=== PATIENT | female | born 1945 | race Caucasian/White ===

== ENCOUNTER 2024-11-12 21:58 | Inpatient (IN) ==
--- NOTE | 2024-11-12 23:10 | ED Physician Documentation ---
PD HPI URI Stated complaint Stated Complaint: COUGH/WEAKNESS Chief complaint Chief Complaint: Resp History obtained from History obtained from: Patient and Family History of Present Illness Timing - onset: How many days ago (3) Timing duration: Days (3) Timing details: Gradual onset and Still present Associated symptoms: Chills, Nasal congestion, Dry cough, Dyspnea and Bilateral edema (chronic, not more than usual.) Contributing factors: No Sick contact, Unimmunized or COPD / asthma Similar symptoms before: Has not had sx before and Other (No history of asthma or emphysema. Does not use inhalers or oxygen at home.) Review of Systems Constitutional Reports: Fatigue, Chills, Malaise and Weakness Cardiovascular Reports: shortness of breath with exertion Respiratory Reports: Shortness of breath, Cough and Wheezing Gastrointestinal Reports: Nausea and Diarrhea (mild); Denies: Melena Endocrine Reports: Fatigue Allergic/Immunologic Reports: Wheezing Meds/Allgy Home Medications Ambulatory Orders Medication Instructions Recorded Confirmed benzonatate 100 mg capsule 100 mg PO BID PRN cough 11/12/24 11/12/24 carvedilol 25 mg tablet mg 11/12/24 doxazosin 8 mg tablet mg 11/12/24 duloxetine 11/12/24 gabapentin 300 mg capsule mg 11/12/24 guaifenesin PO 11/12/24 levothyroxine 11/12/24 losartan 100 tab 11/12/24 mg-hydrochlorothiazide 25 mg tablet omeprazole 40 mg capsule,delayed mg 11/12/24 release pitavastatin calcium 4 mg tablet mg 11/12/24 propranolol 20 mg tablet mg 11/12/24 tramadol 50 mg tablet mg 11/12/24 Allergies Allergies Allergy/AdvReac Type Severity Reaction Status Date / Time No Known Drug Allergies Allergy Verified 11/12/24 22:39 [facility] Social History Social History Smoking Status: Never smoker Second hand tobacco smoke exposure: No Do you dip or chew tobacco?: No Do you vape?: No Patient requests smoking cessation consult: No Initiate information on smoking cessation: No Relationship: Child Level: Assisted Home Mobility Equipment: Cane Do you feel safe in your home environment?: Yes Suffered physical, verbal, emotional, or financial abuse?: No Substance Use: denies use Exam Constitutional normal general appearance, distress noted (some increased work of breathing, but not in resp distress per se. ) (moderate) and average body habitus appears ill feeling, and weak voice/movements. HENMT normocephalic and oropharynx normal Neck/C-Spine visual inspection normal Lymph no lymphadenopathy noted Chest inspection of chest normal Respiratory breath sounds equal bilaterally (symmetric though with somewhat decreased tidal volume. ), wheezing noted (expiratory wheezes), no rales and no retractions Cardiovascular normal heart rate noted, regular rhythm noted and edema noted (1+ edema in both lower legs, at baseline per pt and family.) Gastrointestinal abdomen soft to palpation, nontender to palpation and nontender to percussion Results Vitals Vitals: Vital Signs - 24 hr 11/12/24 22:06 11/12/24 22:46 11/12/24 23:07 Temperature 37.5 C Temperature Source Oral Pulse Rate 78 75 Respiratory Rate 24 20 Blood Pressure 147/90 H 154/72 H O2 Saturation 93 96 Oxygen Delivery Method Nasal Cannula O2 Source Room air Room air If not protocol: Oxygen Flow, liters/minute 2 Pain Intensity 6 11/12/24 23:48 11/13/24 00:00 11/13/24 00:19 Temperature Temperature Source Pulse Rate 68 65 Respiratory Rate 24 20 Blood Pressure 130/63 O2 Saturation 95 Oxygen Delivery Method O2 Source Nasal cannula Nasal cannula If not protocol: Oxygen Flow, liters/minute 2 2 Pain Intensity 7 11/13/24 00:54 11/13/24 01:16 11/13/24 02:24 Temperature Temperature Source Pulse Rate 79 64 60 Respiratory Rate 24 22 20 Blood Pressure 116/45 L 114/49 L O2 Saturation 86 L 97 Oxygen Delivery Method O2 Source Nasal cannula Room air Nasal cannula If not protocol: Oxygen Flow, liters/minute 2 2 Pain Intensity Oxygen O2 Source Nasal cannula Labs Labs: Laboratory Tests 11/12/24 11/12/24 11/13/24 22:30 23:34 00:22 WBC 10.6 RBC 3.25 L Hgb 10.2 L Hct 32.3 L MCV 99.4 H MCH 31.4 H MCHC 31.6 L RDW 12.7 Plt Count 121 L MPV 12.4 H Neut # (Auto) 8.2 H Lymph # (Auto) 0.8 L [place] # (Auto) 1.6 H Eos # (Auto) 0.0 Baso # (Auto) 0.0 Absolute Nucleated RBC 0.00 Band Neuts % (Manual) Not Reportable Abnorm Lymph % (Manual) Not Reportable Nucleated RBC % 0.0 Neutrophils # (Manual) Not Reportable Lymphocytes # (Manual) Not Reportable Monocytes # (Manual) Not Reportable Eosinophils # (Manual) Not Reportable Basophils # (Manual) Not Reportable Differential Comment MANUAL=AUTO DIFF WBC Morphology NORMAL APPEARANCE Platelet Estimate DECREASED (<130,000) Platelet Morphology NORMAL APPEARANCE RBC Morph Micro Appear NORMAL APPEARANCE Sodium 136 Potassium 4.3 Chloride 101 Carbon Dioxide 28 Anion Gap 7.0 BUN 35 H Creatinine 2.1 H Estimated GFR (MDRD) 23 L Glucose 167 H Lactic Acid 0.5 Calcium 8.0 L Magnesium 1.3 L Total Bilirubin 0.5 AST 27 ALT 12 Alkaline Phosphatase 51 B-Natriuretic Peptide 209 H Total Protein 6.3 L Albumin 3.7 Globulin 2.6 Albumin/Globulin Ratio 1.4 Lipase 21 Nasal Adenovirus (PCR) NOT DETECTED Nasal B. parapertussis DNA (PCR) NOT DETECTED Nasal Coronavir 229E PCR NOT DETECTED Nasal Coronavir HKU1 PCR NOT DETECTED Nasal Coronavir NL63 PCR NOT DETECTED Nasal Coronavir OC43 PCR NOT DETECTED Nasal Enterovir/Rhinovir PCR NOT DETECTED Nasal Influenza B PCR NOT DETECTED Nasal Influenza A PCR NOT DETECTED Nasal Parainfluen 1 PCR NOT DETECTED Nasal Parainfluen 2 PCR NOT DETECTED Nasal Parainfluen 3 PCR NOT DETECTED Nasal Parainfluen 4 PCR NOT DETECTED Nasal RSV (PCR) NOT DETECTED Nasal B.pertussis DNA PCR NOT DETECTED Nasal C.pneumoniae (PCR) NOT DETECTED [place] Human Metapneumo PCR NOT DETECTED Nasal M.pneumoniae (PCR) NOT DETECTED Nasal SARS-CoV-2 (PCR) DETECTED A Rads (name of study) chest xray: Relevant Findings:: Final report received and EMP independent interpretation of test (no noted infiltrates. No apparent CHF at this time. ) Interpretation: FINDINGS: Surgical changes and devices: Partially evaluated lower cervical hardware.. Lungs and pleura: No pleural effusions or pneumothorax. No consolidation. Subcentimeter nodular opacities seen in the bilateral lungs. Mediastinum: Mediastinal contours appear normal. Heart size is normal. Nicci vation of the right hemidiaphragm. Bones and chest wall: No suspicious bony lesions. Overlying soft tissues appear unremarkable. IMPRESSION: No focal dense airspace consolidation. Bilateral subcentimeter nodular opacities. Findings may represent pulmonary nodules. No prior imaging is available. Consider further evaluation with nonemergent CT chest. PD Medical Decision Making ED course Complexity details: reviewed results (COVID positive. No infiltrates on CXR. presume viral pneumonitis. BNP minimal. ), re-evaluated patient (pt still with oxygen at 86% after 2 nebs and needing extra oxygen for sats of then 93%. presume needing hospitalization for further treamtn. ), considered differential (likely viral illness with the general symptoms, but most cocnern with the dyspnea and low oxygen. Will get CXR to eval for CHF, but sounds infectious. ), d/w patient, d/w family and d/w sap basis consultant (Hospitalist) ED course: Patient with history of heart disease and mild CHF but no history of asthma or emphysema presents with 3 days of increasing cough dyspnea general malaise less appetite and chills. Feeling short of breath and weak this evening and brought by family. She does have some bronchial congestion and diffuse lung wheezes. No focal consolidation type sounds heard. Chest x-rays not showing any focal infiltrates. Her oxygenation is in the upper 80s on first arrival and improved with nasal cannula. Nebulizers x 2 and she is still 86% on room air. After prolonged time, lab does report out the respiratory panel is positive for COVID. The patient states her baseline creatinine is approximately 2 so the current 2.1 does not seem out of pace. We do not have prior labs on her here. Main electrolytes are looking okay. The chest x-ray does not look like vascular congestion and her BNP is only in the 200s. She does not look to have a c omponent of CHF at this time. I she did socially will give some fluid bolusing. Lactate is negative. However she is ill with poor intake and's CHF and system diseases with hypoxia. I believe she warrants criteria for admission. I will contact the hospitalist. Discharge Plan Discharge Patient Disposition: [facility] DC/Xfer Condition: Stable Clinical Impression: COVID-19, Upper respiratory infection, Hypoxemia, General weakness Interventions: ED Admission Assessment Last Done: 11/13/24 03:24
[2024-11-12 23:33] LABS: BASOPHILS % (AUTO) 0.4 %; EOSINOPHILS % (AUTO) 0.3 %; HCT - HEMATOCRIT 32.3 % (37.0-47.0); HGB - HEMOGLOBIN 10.2 g/dL (12.0-16.0); LYMPHOCYTES # (AUTO) 0.8 10^3/uL (1.5-3.5); LYMPHOCYTES % (AUTO) 7.2 %; MEAN CORPUSCULAR HEMOGLOBIN 31.4 pg (27.0-31.0); MEAN CORPUSCULAR HGB CONC 31.6 g/dL (32.0-36.0); MEAN CORPUSCULAR VOLUME 99.4 fL (81.0-99.0); MEAN PLATELET VOLUME 12.4 fL (7.9-10.8); MONOCYTES # (AUTO) 1.6 10^3/uL (0.0-1.0); MONOCYTES % (AUTO) 14.8 %; NEUTROPHILS # (AUTO) 8.2 10^3/uL (1.5-6.6); NEUTROPHILS % (AUTO) 76.9 %; PLT - PLATELET COUNT 121 10^3/uL (130-450); RED BLOOD COUNT 3.25 10^6/uL (4.20-5.40); RED CELL DISTRIBUTION WIDTH 12.7 % (12.0-15.0); WHITE BLOOD COUNT 10.6 x10^3/uL (4.8-10.8)
[2024-11-12] MEDS: ALBUTEROL NEB 2.5 MG/3 ML INH STA (23:45)
[2024-11-12 23:54] LABS: MAGNESIUM 1.3 mg/dL (1.7-2.3)
[2024-11-13] LABS: ALBUMIN 3.7 g/dL (3.2-5.5); ALBUMIN/GLOBULIN RATIO 1.4 (1.0-2.2); BILIRUBIN,TOTAL 0.5 mg/dL (0.2-1.0); CREATININE 2.1 mg/dL (0.6-1.3); POTASSIUM 4.3 mmol/L (3.5-4.5); TOTAL PROTEIN 6.3 g/dL (6.4-8.9)
[2024-11-13] MEDS: KETOROLAC 15 MG/ML VIAL IVP STA
[2024-11-13] MEDS: guaiFENesin 100 MG/5 ML UDC PO STA (00:03)
[2024-11-13 00:25] LABS: DIFFERENTIAL COMMENT MANUAL=AUTO DIFF; PLATELET ESTIMATE, MANUAL DECREASED (<130,000) (NORMAL); PLATELET MORPHOLOGY NORMAL APPEARANCE (NORMAL); RBC MORPHOLOGY (MULTIPLE) NORMAL APPEARANCE (NORMAL); WBC MORPHOLOGY (MULTIPLE) NORMAL APPEARANCE (NORMAL)
--- NOTE | 2024-11-13 00:36 | XRAY Report ---
PROCEDURE: XR Chest 1V INDICATIONS: cough and dyspnea few days TECHNIQUE: One view of the chest was acquired. COMPARISON: None. FINDINGS: Surgical changes and devices: Partially evaluated lower cervical hardware.. Lungs and pleura: No pleural effusions or pneumothorax. No consolidation. Subcentimeter nodular opa cities seen in the bilateral lungs. Mediastinum: Mediastinal contours appear normal. Heart size is normal. Elevation of the right hem idiaphragm. Bones and chest wall: No suspicious bony lesions. Overlying soft tissues appear unremarkable. IMPRESSION: No focal dense airspace consolidation. Bilateral subcentimeter nodular opacities. Findings may repres ent pulmonary nodules. No prior imaging is available. Consider further evaluation with nonemergent CT chest. Reviewed by: Susie Summers MD, PhD on 11/13/2024 12:34 AM [facility] [[email or web address]] Approved by: Susie Summers MD, PhD on 11/13/2024 12:34 AM [facility] [[email or web address]] Station ID: [id number]
[2024-11-13] MEDS: SODIUM CHLORIDE 0.9% 1,000 ML IV STA (00:41)
[2024-11-13] MEDS: ALBUTEROL NEB 2.5 MG/3 ML INH STA (00:53)
[2024-11-13 01:24] LABS: B. PARAPERTUSSIS- RESP PCR PAN NOT DETECTED; B. PERTUSSIS- RESP PCR PANEL NOT DETECTED; C. PNEUMONIAE- RESP PCR PANEL NOT DETECTED; CORONAVIRUS 229E-RESP PCR NOT DETECTED; CORONAVIRUS HKU1-RESP PCR NOT DETECTED; CORONAVIRUS NL63-RESP PCR NOT DETECTED; CORONAVIRUS OC43-RESP PCR NOT DETECTED; HUMAN METAPNEUMOVIRUS NOT DETECTED; INFLUENZA A- RESP PCR PANEL NOT DETECTED; INFLUENZA B - RESP PCR PANEL NOT DETECTED; M. PNEUMONIAE- RESP PCR PANEL NOT DETECTED; PARAINFLUENZA VIRUS 1 NOT DETECTED; PARAINFLUENZA VIRUS 2 NOT DETECTED; PARAINFLUENZA VIRUS 4 NOT DETECTED; RHINOVIRUS/ENTEROVIRUS NOT DETECTED; RSV- RESP PCR PANEL NOT DETECTED; SARS-CoV-2 -RESP PCR PANEL DETECTED
--- NOTE | 2024-11-13 02:16 | HISTORY & PHYSICAL EXAMINATION ---
Chief Complaint Chief Complaint Chief Complaint: SOB History of Present Illness Admitted From Admitted From:: ER History Obtained From Records Reviewed: Yes History obtained from: Pt's daughter, staff, chart Exam Limitations: Virtual exams History of Present Illness HPI Comment/Other: H&P was conducted via video remotely, using [employer]. [place] Physician [place] Pt's daughter Nell is at bedside. Pt is drowsy. History obtained from daughter, staff, chart. 79 yo F with PMH of HTN, HLD, GERD, Hypothyroidism, Chronic pain d/t DJD s/p Cervical fusion and Lumbar fusion presented to the ER with c/o 3 day h/o fatigue and 1 day h/o SOB. Pt and daughter flew from [place] on to spend time with grandkids/family in [place]. The next day, pt c/o H/A and fatigue. Yes[place], [place]. Pt did not tell family that she did not feel well, but she had symptoms of fatigue and subjective Fever. Today, she c/o cough, no sputum, chest congestion, wheezing, F/C, SOB. No abdo pain/N/V. In the ER, RR 24, SpO2 86%RA-97% 2L NC, BP 114/49 Mg 1.3, Glc 167, BNP 209, CR 2.1, Plt 121, Hgb 10.2, MCV 99.4, COVID-19+ CXR: No focal dense airspace consolidation. Bilateral subcentimeter nodular opacities. Findings may represent pulmonary nodules. No prior imaging is available. Consider further evaluation with nonemergent CT chest. Pt was given Albuterol nebs, IVF, Toradol, Robitussin in the ER. Review of Systems Status of ROS: 10 or more systems reviewed and unremarkable except as noted in history and below PFSH Social History Social History Do you feel safe in your home environment?: Yes Suffered physical, verbal, emotional, or financial abuse?: No Meds/Allgy Home Medications Ambulatory Orders Medication Instructions Recorded Confirmed benzonatate 100 mg capsule 100 mg PO BID PRN cough 11/12/24 11/12/24 carvedilol 25 mg tablet mg 11/12/24 doxazosin 8 mg tablet mg 11/12/24 duloxetine 11/12/24 gabapentin 300 mg capsule mg 11/12/24 guaifenesin PO 11/12/24 levothyroxine 11/12/24 losartan 100 tab 11/12/24 mg-hydrochlorothiazide 25 mg tablet omeprazole 40 mg capsule,delayed mg 11/12/24 release pitavastatin calcium 4 mg tablet mg 11/12/24 propranolol 20 mg tablet mg 11/12/24 tramadol 50 mg tablet mg 11/12/24 Allergies Allergies Allergy/AdvReac Type Severity Reaction Status Date / Time No Known Drug Allergies Allergy Verified 11/12/24 22:39 Exam Constitutional normal general appearance HENMT normocephalic Eyes PERRL and no scleral icterus Respiratory cart stethoscope not working; per ER Provider: diffuse wheezing Cardiovascular cart stethoscope not working; per ER Provider: RRR, no murmurs Gastrointestinal per ER Provider: non-distended, NT, Soft Extremities per ER Provider: moves all extrem, no edema Neurology Drowsy; per ER Provider: NFD Conclusion/Plan Problem List (1) COVID-19: Plan: Acute Respiratory Failure with Hypoxia COVID-19+ Cough Fatigue Shortness of Breath Tachypnea -RR 24, SpO2 86%RA-97% 2L NC, BNP 209, COVID-19+ -CXR: No focal dense airspace consolidation. Bilateral subcentimeter nodular opacities. Findings may represent pulmonary nodules. No prior imaging is available. Consider further evaluation with nonemergent CT chest. -Pt was given Albuterol nebs, IVF, Toradol, Robitussin in the ER. -admit to Med Surg with Tele -continue O2 support PRN -isolation -IS -Decadron 6 mg IV x 10 days -would also tx with Remdesivir, but does not seem to be on formulary; will defer to Day team Abnormal CXR -CT chest with contrast once renal function has improved ELOISA -CR 2.1; unknown baseline -cautious IVF -hold home medications: Losartan-HCTZ -avoid nephrotoxins Low Magnesium -Mg 1.3 -supplement now and PRN Hyperglycemia -Glc 167 -check Hgba1c Anemia, macrocytic Thrombocytopenia -Plt 121, Hgb 10.2, MCV 99.4 -check B12/Folate -monitor HTN HLD -BP 114/49 -continue home medications: statin -hold home medications: Coreg, Doxazosin, Losartan-HCTZ, Propranolol d/t low BP in presence of infection -med rec not available yet; med rec when available Essential Tremors -hold home medications: Propranolol d/t low BP GERD -continue home medications: PPI -med rec not available yet; med rec when available Hypothyroidism -continue home medications: Levothyroxine -med rec not available yet; med rec when available -check TSH Chronic pain d/t DJD s/p Cervical fusion and Lumbar fusion -continue home medications: Tramadol VTE Prophylaxis: SCDs d/t low platelets Code Status: D/W pt's daughter. Pt is Full Code ~Soo Arnett MD Hospitalist Lab Results 11/12/24 22:30 11/12/24 22:30
[2024-11-13] MEDS ORDERED: traMADol 50 MG TABLET PO PRN (02:30)
[2024-11-13] MEDS ORDERED: ONDANSETRON ODT 4 MG TABLET TL PRN (02:33)
[2024-11-13] MEDS ORDERED: ONDANSETRON 4 MG/2 ML VIAL IVP PRN (02:33)
[2024-11-13] MEDS ORDERED: ALBUTEROL NEB 2.5 MG/3 ML INH PRN (02:50)
[2024-11-13] MEDS: MAGNESIUM SULFATE 4 GM in SODIUM CHLORIDE 0.9% 50 ML IV ONE (04:31)
[2024-11-13] MEDS: MAGNESIUM SULFATE 2 GRAM 2 GM/50 ML BAG IV SCH (04:53)
[2024-11-13] MEDS: LACTATED RINGERS 1,000 ML IV SCH (04:53)
[2024-11-13 06:23] LABS: BASOPHILS % (AUTO) 0.3 %; EOSINOPHILS % (AUTO) 0.1 %; HCT - HEMATOCRIT 27.6 % (37.0-47.0); HGB - HEMOGLOBIN 8.8 g/dL (12.0-16.0); LYMPHOCYTES # (AUTO) 1.2 10^3/uL (1.5-3.5); LYMPHOCYTES % (AUTO) 11.7 %; MEAN CORPUSCULAR HEMOGLOBIN 31.5 pg (27.0-31.0); MEAN CORPUSCULAR HGB CONC 31.9 g/dL (32.0-36.0); MEAN CORPUSCULAR VOLUME 98.9 fL (81.0-99.0); MEAN PLATELET VOLUME 11.7 fL (7.9-10.8); MONOCYTES # (AUTO) 1.3 10^3/uL (0.0-1.0); MONOCYTES % (AUTO) 12.3 %; NEUTROPHILS # (AUTO) 7.6 10^3/uL (1.5-6.6); NEUTROPHILS % (AUTO) 75.2 %; PLT - PLATELET COUNT 108 10^3/uL (130-450); RED BLOOD COUNT 2.79 10^6/uL (4.20-5.40); RED CELL DISTRIBUTION WIDTH 12.6 % (12.0-15.0); WHITE BLOOD COUNT 10.1 x10^3/uL (4.8-10.8)
[2024-11-13 06:41] LABS: CALCIUM 7.1 mg/dL (8.5-10.3); CREATININE 1.9 mg/dL (0.6-1.3); MAGNESIUM 1.9 mg/dL (1.7-2.3); POTASSIUM 3.5 mmol/L (3.5-4.5)
[2024-11-13 06:51] LABS: THYROID STIMULATING HORMONE 0.68 uIU/mL (0.34-5.60)
[2024-11-13 07:09] LABS: ESTIMATED AVERAGE GLUCOSE 131 mg/dL (70-100); HEMOGLOBIN A1c% 6.2 % (4.27-6.07)
[2024-11-13] MEDS: INSULIN LISPRO 300 UNIT/3 ML PEN SUBQ SCH (08:43)
[2024-11-13] MEDS: ACETAMINOPHEN 325 MG TABLET PO PRN (08:44)
[2024-11-13] MEDS: DEXAMETHASONE 10 MG/ML VIAL IVP SCH (08:44)
[2024-11-13] MEDS: polyethylene glycoL 3350 17 GM PACKET PO SCH (08:44)
[2024-11-13] MEDS: NYSTATIN POWDER 15 GM TOP SCH (08:44)
[2024-11-13] MEDS: REMDESIVIR 200 MG in SODIUM CHLORIDE 0.9% 250 ML IV ONE (08:45)
[2024-11-13] MEDS ORDERED: guaiFENesin 100 MG/5 ML UDC PO PRN (10:38)
--- NOTE | 2024-11-13 11:12 | PHARMACY PROGRESS NOTE ---
Best Possible Medication History Admit Date and Time: 11/13/24 0233 Home Medications Medication Instructions Recorded Confirmed Type benzonatate 100 mg capsule 100 mg PO BID PRN cough 11/12/24 11/12/24 History carvedilol 25 mg tablet 25 mg PO BID 11/12/24 11/13/24 History doxazosin 8 mg tablet 8 mg PO ONCE 11/12/24 11/13/24 History gabapentin 300 mg capsule 300 mg PO TID 11/12/24 11/13/24 History losartan 100 1 tab PO DAILY 11/12/24 11/13/24 History mg-hydrochlorothiazide 25 mg tablet omeprazole 40 mg capsule,delayed 40 mg PO DAILY 11/12/24 11/13/24 History release pitavastatin calcium 4 mg tablet 4 mg PO DAILY 11/12/24 11/13/24 History propranolol 20 mg tablet 20 mg PO BID 11/12/24 11/13/24 History tramadol 50 mg tablet 50 mg PO BID 11/12/24 11/13/24 History duloxetine 60 mg capsule,delayed 60 mg PO DAILY 11/13/24 11/13/24 History release ergocalciferol (vitamin D2) 1,250 1,250 mcg PO Q7D 11/13/24 11/13/24 History mcg (50,000 unit) capsule (Vitamin D2) levothyroxine 25 mcg tablet 25 mcg PO DAILY 11/13/24 11/13/24 History Processed by: Pharmacy Medications reviewed in ED?: Yes Medication History completed: Yes Patient Interview: Pt unable to participate Secondary Source(s): Pharmacy records and Insurance records [facility] Statement: As the person ultimately responsible for medication therapy, providers are able to order a medication from an existing home medication list in [facility] via the "Reconcile Routine" prior to Confirmation of that medication by technology support analyst. Such practice is discouraged except when the physician, in their clinical judgment, deems that a medical need exists for a medication without regard to previous use.
--- NOTE | 2024-11-13 13:47 | PROVIDER PROGRESS NOTE ---
Current Medications Current Medications Current Medications: Current Medications Generic Name Dose Route Start Last Admin Trade Name Freq PRN Reason Stop Dose Admin Acetaminophen 650 mg 11/13/24 02:33 11/13/24 08:44 Acetaminophen 325 Mg Tablet PO 650 mg Q4HR PRN Administration Pain 1 to 4, or Fever Albuterol 2 puffs 11/13/24 13:44 Albuterol 1 Puff INH Q4H PRN Cough Benzonatate 100 mg 11/13/24 02:30 Benzonatate 100 Mg Capsule PO BID PRN cough Dexamethasone Sodium Phosphate 6 mg 11/13/24 09:00 11/13/24 08:44 Dexamethasone 10 Mg/Ml Vial IVP 6 mg DAILY CAROL Administration Guaifenesin 600 mg 11/13/24 02:51 Guaifenesin 600 Mg Tablet PO Q6H PRN Cough Guaifenesin 200 mg 11/13/24 10:38 Guaifenesin 100 Mg/5 Ml Udc PO Q4H PRN Cough Lactated Ringer's 1,000 mls @ 83.333 mls/hr 11/13/24 04:00 11/13/24 09:25 Lr IV 11/13/24 15:59 83.33 mls/hr .Q12H CAROL Infusion Remdesivir 100 mg/ Sodium 100 mls @ 200 mls/hr 11/14/24 09:00 Chloride IV 11/17/24 09:29 DAILY CAROL Insulin Human Lispro 1 - 5 unit 11/13/24 08:00 11/13/24 12:09 Insulin Lispro 300 Unit/3 Ml Pen SUBQ 1 unit 0800,1200,1700,2100 CAROL Administration Protocol Nystatin 1 applic 11/13/24 09:00 11/13/24 08:44 Nystatin Powder 15 Gm TOP 1 applic BID CAROL Administration Ondansetron HCl 4 mg 11/13/24 02:33 Ondansetron Odt 4 Mg Tablet TL Q6HR PRN Nausea / Vomiting Ondansetron HCl 4 mg 11/13/24 02:33 Ondansetron 4 Mg/2 Ml Vial IVP Q6HR PRN Nausea / Vomiting Polyethylene Glycol 17 gm 11/13/24 09:00 11/13/24 08:44 Polyethylene Glycol 3350 17 Gm Packet PO 17 gm DAILY CAROL Administration Tramadol HCl 50 mg 11/13/24 02:30 Tramadol 50 Mg Tablet PO Q6H PRN Moderate Pain (Level 4-6) Objective Vital Signs/Intake & Output Vital Signs: Vital Signs x48h Temp Pulse Resp BP Pulse Ox O2 Flow Rate 11/13/24 13:28 36.6 C 67 18 138/59 H 98 2 11/13/24 07:54 36.6 C 57 L 18 130/61 97 2 Intake & Output: Intake & Output 11/10/24 11/11/24 11/12/24 11/13/24 23:59 23:59 23:59 23:59 Intake Total 1924 Output Total 0 / 0 Balance 1924 Weight (kg) 78.018 kg 77.5 kg Lab Results 11/13/24 05:50 11/13/24 05:50 Other Labs: Lab Results x24hrs 11/13/24 11/13/24 11/13/24 Range/Units 11:48 07:52 05:50 WBC 10.1 (4.8-10.8) x10^3/uL RBC 2.79 L (4.20-5.40) 10^6/uL Hgb 8.8 L (12.0-16.0) g/dL Hct 27.6 L (37.0-47.0) % MCV 98.9 (81.0-99.0) fL MCH 31.5 H (27.0-31.0) pg MCHC 31.9 L (32.0-36.0) g/dL RDW 12.6 (12.0-15.0) % Plt Count 108 L (130-450) 10^3/uL MPV 11.7 H (7.9-10.8) fL Neut # (Auto) 7.6 H (1.5-6.6) 10^3/uL Lymph # (Auto) 1.2 L (1.5-3.5) 10^3/uL [place] # (Auto) 1.3 H (0.0-1.0) 10^3/uL Eos # (Auto) 0.0 (0.0-0.7) 10^3/uL Baso # (Auto) 0.0 (0.0-0.1) 10^3/uL Absolute Nucleated RBC 0.00 x10^3/uL Band Neuts % (Manual) Abnorm Lymph % (Manual) Nucleated RBC % 0.0 /100WBC Neutrophils # (Manual) Lymphocytes # (Manual) Monocytes # (Manual) Eosinophils # (Manual) Basophils # (Manual) Differential Comment WBC Morphology (NORMAL) Platelet Estimate (NORMAL) Platelet Morphology (NORMAL) RBC Morph Micro Appear (NORMAL) Sodium 138 (135-145) mmol/L Potassium 3.5 (3.5-4.5) mmol/L Chloride 104 (101-111) mmol/L Carbon Dioxide 27 (21-32) mmol/L Anion Gap 7.0 (6-13) BUN 32 H (6-20) mg/dL Creatinine 1.9 H (0.6-1.3) mg/dL Estimated GFR (MDRD) 26 L (>89) Glucose 120 H (74-104) mg/dL POC Whole Bld Glucose 172 93 (70-100) mg/dL Estimat Average Glucose 131 H (70-100) mg/dL Hemoglobin A1c % 6.2 H (4.27-6.07) % Lactic Acid (0.5-2.2) mmol/L Calcium 7.1 L (8.5-10.3) mg/dL Magnesium 1.9 (1.7-2.3) mg/dL Total Bilirubin (0.2-1.0) mg/dL AST (10-42) IU/L ALT (10-60) IU/L Alkaline Phosphatase (42-121) IU/L B-Natriuretic Peptide (5-100) pg/mL Total Protein (6.4-8.9) g/dL Albumin (3.2-5.5) g/dL Globulin (2.1-4.2) g/dL Albumin/Globulin Ratio (1.0-2.2) Lipase (11-82) U/L Vitamin B12 581 (180-914) pg/mL Folate 17.7 (5.90 - >24.8) ng/mL TSH 0.68 (0.34-5.60) uIU/mL Nasal Adenovirus (PCR) Nasal B. parapertussis DNA (PCR) Nasal Coronavir 229E PCR Nasal Coronavir HKU1 PCR Nasal Coronavir NL63 PCR Nasal Coronavir OC43 PCR Nasal Enterovir/Rhinovir PCR Nasal Influenza B PCR Nasal Influenza A PCR Nasal Parainfluen 1 PCR Nasal Parainfluen 2 PCR Nasal Parainfluen 3 PCR Nasal Parainfluen 4 PCR Nasal RSV (PCR) Nasal B.pertussis DNA PCR Nasal C.pneumoniae (PCR) [place] Human Metapneumo PCR Nasal M.pneumoniae (PCR) Nasal SARS-CoV-2 (PCR) 11/13/24 11/12/24 11/12/24 Range/Units 00:22 23:34 22:30 WBC 10.6 (4.8-10.8) x10^3/uL RBC 3.25 L (4.20-5.40) 10^6/uL Hgb 10.2 L (12.0-16.0) g/dL Hct 32.3 L (37.0-47.0) % MCV 99.4 H (81.0-99.0) fL MCH 31.4 H (27.0-31.0) pg MCHC 31.6 L (32.0-36.0) g/dL RDW 12.7 (12.0-15.0) % Plt Count 121 L (130-450) 10^3/uL MPV 12.4 H (7.9-10.8) fL Neut # (Auto) 8.2 H (1.5-6.6) 10^3/uL Lymph # (Auto) 0.8 L (1.5-3.5) 10^3/uL [place] # (Auto) 1.6 H (0.0-1.0) 10^3/uL Eos # (Auto) 0.0 (0.0-0.7) 10^3/uL Baso # (Auto) 0.0 (0.0-0.1) 10^3/uL Absolute Nucleated RBC 0.00 x10^3/uL Band Neuts % (Manual) Not Reportable Abnorm Lymph % (Manual) Not Reportable Nucleated RBC % 0.0 /100WBC Neutrophils # (Manual) Not Reportable Lymphocytes # (Manual) Not Reportable Monocytes # (Manual) Not Reportable Eosinophils # (Manual) Not Reportable Basophils # (Manual) Not Reportable Differential Comment MANUAL=AUTO DIFF WBC Morphology NORMAL APPEARANCE (NORMAL) Platelet Estimate DECREASED (<130,000) (NORMAL) Platelet Morphology NORMAL APPEARANCE (NORMAL) RBC Morph Micro Appear NORMAL APPEARANCE (NORMAL) Sodium 136 (135-145) mmol/L Potassium 4.3 (3.5-4.5) mmol/L Chloride 101 (101-111) mmol/L Carbon Dioxide 28 (21-32) mmol/L Anion Gap 7.0 (6-13) BUN 35 H (6-20) mg/dL Creatinine 2.1 H (0.6-1.3) mg/dL Estimated GFR (MDRD) 23 L (>89) Glucose 167 H (74-104) mg/dL POC Whole Bld Glucose (70-100) mg/dL Estimat Average Glucose (70-100) mg/dL Hemoglobin A1c % (4.27-6.07) % Lactic Acid 0.5 (0.5-2.2) mmol/L Calcium 8.0 L (8.5-10.3) mg/dL Magnesium 1.3 L (1.7-2.3) mg/dL Total Bilirubin 0.5 (0.2-1.0) mg/dL AST 27 (10-42) IU/L ALT 12 (10-60) IU/L Alkaline Phosphatase 51 (42-121) IU/L B-Natriuretic Peptide 209 H (5-100) pg/mL Total Protein 6.3 L (6.4-8.9) g/dL Albumin 3.7 (3.2-5.5) g/dL Globulin 2.6 (2.1-4.2) g/dL Albumin/Globulin Ratio 1.4 (1.0-2.2) Lipase 21 (11-82) U/L Vitamin B12 (180-914) pg/mL Folate (5.90 - >24.8) ng/mL TSH (0.34-5.60) uIU/mL Nasal Adenovirus (PCR) NOT DETECTED Nasal B. parapertussis DNA (PCR) NOT DETECTED Nasal Coronavir 229E PCR NOT DETECTED Nasal Coronavir HKU1 PCR NOT DETECTED Nasal Coronavir NL63 PCR NOT DETECTED Nasal Coronavir OC43 PCR NOT DETECTED Nasal Enterovir/Rhinovir PCR NOT DETECTED Nasal Influenza B PCR NOT DETECTED Nasal Influenza A PCR NOT DETECTED Nasal Parainfluen 1 PCR NOT DETECTED Nasal Parainfluen 2 PCR NOT DETECTED Nasal Parainfluen 3 PCR NOT DETECTED Nasal Parainfluen 4 PCR NOT DETECTED Nasal RSV (PCR) NOT DETECTED Nasal B.pertussis DNA PCR NOT DETECTED Nasal C.pneumoniae (PCR) NOT DETECTED [place] Human Metapneumo PCR NOT DETECTED Nasal M.pneumoniae (PCR) NOT DETECTED Nasal SARS-CoV-2 (PCR) DETECTED A Assessment/Plan Problem List (1) COVID-19:
--- NOTE | 2024-11-13 16:52 | PROVIDER PROGRESS NOTE ---
Progress Note Progress Note Progress Note: Patient was seen this morning. Her daughter is at the bedside. She is feeling poorly. She remains on oxygen via nasal cannula. She had her last COVID- vaccine a little over a year ago. She denies any history of underlying lung disease. She is not a smoker. At baseline she lives alone. She walks with a cane. She completes all of her activities of daily living. On exam lungs are with diffuse wheezing. She is moving air. Her oxygen saturation is 98% on 2 L via nasal cannula. Her abdomen is soft she does not have any pedal edema. She is not using accessory muscles to breathe. She has been admitted overnight by the hospitalist via telehealth. This morning I am starting remdesivir. I am starting albuterol treatments via metered-dose inhaler per respiratory therapy preference. Will continue supplemental oxygen until she is able to wean.
[2024-11-13] MEDS: ALBUTEROL 1 PUFF INH PRN (18:16)
[2024-11-13] MEDS: PROPRANOLOL 10 MG TABLET PO SCH (21:54)
[2024-11-13] MEDS: carvediloL 12.5 MG TABLET PO SCH (21:54)
[2024-11-13] MEDS: PRAVASTATIN 40 MG TABLET PO SCH (21:54)
[2024-11-13] MEDS: GABAPENTIN 300 MG CAPSULE PO SCH (21:54)
[2024-11-14] MEDS: amLODIPine 5 MG TABLET PO ONE (01:34)
[2024-11-14 02:00] LABS: MAGNESIUM 2.3 mg/dL (1.7-2.3)
[2024-11-14 02:05] LABS: CALCIUM 7.6 mg/dL (8.5-10.3); CREATININE 1.4 mg/dL (0.6-1.3); POTASSIUM 3.8 mmol/L (3.5-4.5)
[2024-11-14 05:05] LABS: BASOPHILS % (AUTO) 0.1 %; HCT - HEMATOCRIT 32.3 % (37.0-47.0); HGB - HEMOGLOBIN 10.3 g/dL (12.0-16.0); LYMPHOCYTES # (AUTO) 0.6 10^3/uL (1.5-3.5); LYMPHOCYTES % (AUTO) 5.8 %; MEAN CORPUSCULAR HEMOGLOBIN 31.5 pg (27.0-31.0); MEAN CORPUSCULAR HGB CONC 31.9 g/dL (32.0-36.0); MEAN CORPUSCULAR VOLUME 98.8 fL (81.0-99.0); MEAN PLATELET VOLUME 11.5 fL (7.9-10.8); MONOCYTES # (AUTO) 0.4 10^3/uL (0.0-1.0); MONOCYTES % (AUTO) 4.4 %; NEUTROPHILS # (AUTO) 8.7 10^3/uL (1.5-6.6); NEUTROPHILS % (AUTO) 89.2 %; PLT - PLATELET COUNT 116 10^3/uL (130-450); RED BLOOD COUNT 3.27 10^6/uL (4.20-5.40); WHITE BLOOD COUNT 9.8 x10^3/uL (4.8-10.8)
[2024-11-14 05:19] LABS: CALCIUM 7.5 mg/dL (8.5-10.3); CREATININE 1.4 mg/dL (0.6-1.3); MAGNESIUM 2.3 mg/dL (1.7-2.3); POTASSIUM 3.9 mmol/L (3.5-4.5)
[2024-11-14] MEDS: PANTOPRAZOLE 40 MG TABLET PO SCH (06:03)
[2024-11-14] MEDS: DULoxetine 20 MG CAPSULE PO SCH (08:32)
[2024-11-14] MEDS: LEVOTHYROXINE 25 MCG TABLET PO SCH (08:32)
[2024-11-14] MEDS: REMDESIVIR 100 MG in SODIUM CHLORIDE 0.9% 100ML 100 ML IV SCH (09:04)
[2024-11-14] MEDS: BENZONATATE 100 MG CAPSULE PO PRN (09:05)
[2024-11-14] MEDS: guaiFENesin 600 MG TABLET PO PRN (09:05)
[2024-11-14] MEDS: INSULIN LISPRO 300 UNIT/3 ML PEN SUBQ SCH (12:16)
[2024-11-14 12:57] VITALS: BP 171/66; TEMP 97.5; O2SAT 96
--- NOTE | 2024-11-14 13:37 | Discharge Summary ---
"Discharge Summary Admit Date: 11/13/24 Discharge Date: 11/14/24 Discharging Provider: Letha Soriano PA-C Primary Care Provider: out of state Code Status: Attempt Resuscitation DIAGNOSES Discharge Diagnoses with Status of Each Condition: Acute hypoxic respiratory failure, resolved COVID-19 infection Acute kidney injury, creatinine trended down to 1.4 from 2.1 Hypomagnesemia Type 2 diabetes, diet controlled Hypertension, controlled Hyperlipidemia, on statin, controlled GERD, chronic Hypothyroidism, chronic Chronic pain syndrome chronic and controlled HPI History of Present Illness: H&P was conducted via video remotely, using [employer]. Patient is in [place]. Physician is in [place]. Pt's daughter Nell is at bedside. Pt is drowsy. History obtained from daughter, staff, chart. 79 yo F with PMH of HTN, HLD, GERD, Hypothyroidism, Chronic pain d/t DJD s/p Cervical fusion and Lumbar fusion presented to the ER with c/o 3 day h/o fatigue and 1 day h/o SOB. Pt and daughter flew from [place] on to spend time with grandkids/family in [place]. The next day, pt c/o H/A and fatigue. Yesterday, they toured [place]. Pt did not tell family that she did not feel well, but she had symptoms of fatigue and subjective Fever. Today, she c/o cough, no sputum, chest congestion, wheezing, F/C, SOB. No abdo pain/N/V. In the ER, RR 24, SpO2 86%RA-97% 2L NC, BP 114/49 Mg 1.3, Glc 167, BNP 209, CR 2.1, Plt 121, Hgb 10.2, MCV 99.4, COVID-19+ CXR: No focal dense airspace consolidation. Bilateral subcentimeter nodular opacities. Findings may represent pulmonary nodules. No prior imaging is available. Consider further evaluation with nonemergent CT chest. Pt was given Albuterol nebs, IVF, Toradol, Robitussin in the ER. CONSULTS | PROCEDURES Procedures: Chest x-ray: No focal airspace consolidation. Bilateral subcentimeter [place] nodular opacities. May represent pulmonary nodules. Outpatient CT of the chest is recommended. HOSPITAL COURSE Hospital Course: Acute hypoxemic respiratory failure: Due to COVID-19 infection. She has not had a COVID-vaccine for over 1 year. She is not on oxygen at home. Her oxygen saturation improves over the course of her hospitalization she weaned to room air. COVID-19 infection: Treated with Decadron in remdesivir while inpatient. Also given albuterol inhaler treatments. Acute kidney injury: Creatinine 2.1 on admission trended down to 1.4 prior to discharge Hypomagnesemia: Repleted in the ED, magnesium level normal prior to discharge Type 2 diabetes mellitus: Treated with diet at home. Hemoglobin A1c is 6.2% Hypertension: Occasional hypertension while admitted. Resume home medications on discharge Hyperlipidemia: Resume statin on discharge GERD: Resume PPI on discharge Hypothyroidism: Resume home dose Synthroid on discharge Chronic pain syndrome: Resume home tramadol on discharge. ALLERGIES Allergies Allergy/AdvReac Type Severity Reaction Status Date / Time No Known Drug Allergies Allergy Verified 11/12/24 22:39 MEDICATIONS Ambulatory Orders Medication Instructions Recorded Confirmed benzonatate 100 mg capsule 100 mg PO BID PRN cough 11/12/24 11/12/24 carvedilol 25 mg tablet 25 mg PO BID 11/12/24 11/13/24 doxazosin 8 mg tablet 8 mg PO ONCE 11/12/24 11/13/24 gabapentin 300 mg capsule 300 mg PO TID 11/12/24 11/13/24 losartan 100 1 tab PO DAILY 11/12/24 11/13/24 mg-hydrochlorothiazide 25 mg tablet omeprazole 40 mg capsule,delayed 40 mg PO DAILY 11/12/24 11/13/24 release pitavastatin calcium 4 mg tablet 4 mg PO DAILY 11/12/24 11/13/24 propranolol 20 mg tablet 20 mg PO BID 11/12/24 11/13/24 tramadol 50 mg tablet 50 mg PO BID 11/12/24 11/13/24 duloxetine 60 mg capsule,delayed 60 mg PO DAILY 11/13/24 11/13/24 release ergocalciferol (vitamin D2) 1,250 1,250 mcg PO Q7D 11/13/24 11/13/24 mcg (50,000 unit) capsule (Vitamin D2) levothyroxine 25 mcg tablet 25 mcg PO DAILY 11/13/24 11/13/24 albuterol sulfate 90 mcg/actuation 2 puff inhalation Q4H PRN Cough 11/14/24 aerosol inhaler (Ventolin HFA) #8.5 grams dexamethasone 6 mg tablet 6 mg PO DAILY #3 tabs 11/14/24 ondansetron 4 mg disintegrating 4 mg translingual Q6HR PRN Nausea 11/14/24 tablet / Vomiting #10 tabs PHYSICAL EXAM AT DISCHARGE General Appearance: positive No acute distress and Alert Eyes Bilateral: positive Normal inspection ENT: positive ENT inspection nml Neck: positive Nml inspection Respiratory: positive Chest non-tender, No respiratory distress and Breath sounds nml Cardiovascular: positive Regular rate & rhythm Abdomen: positive Non-tender and No distention Skin: positive Color nml and No rash Extremities: positive Non-tender and No pedal edema Neurologic/Psychiatric: positive Oriented x3 LABS 11/14/24 04:45 11/14/24 04:45 FOLLOW UP Follow Up: PCP when she returns home to [place] Should have repeat chest x-ray in the outpatient environment, possibly CT of the chest. TIME SPENT Time Spent in Discharge (Minutes): 40 Discharge Plan Discharge Patient Disposition: Home, Self Care Condition: Stable Prescriptions: New albuterol sulfate [Ventolin HFA] 90 mcg/actuation Hfa Aerosol Inhaler 2 puff inhalation Q4H PRN (Reason: Cough) Qty: 8.5 0RF ondansetron 4 mg Tablet,Disintegrating 4 mg translingual Q6HR PRN (Reason: Nausea / Vomiting) Qty: 10 0RF dexamethasone 6 mg tablet 6 mg PO DAILY Qty: 3 0RF Continued carvedilol 25 mg tablet 25 mg PO BID Patient Comments: TAKE 1 TABLET BY MOUTH TWICE DAILY propranolol 20 mg tablet 20 mg PO BID Patient Comments: TAKE 1 TABLET BY MOUTH TWICE DAILY losartan-hydrochlorothiazide 100-25 mg tablet 1 tab PO DAILY Patient Comments: TAKE 1 TABLET BY MOUTH DAILY tramadol 50 mg tablet 50 mg PO BID Patient Comments: TAKE 1 TABLET BY MOUTH TWICE DAILY gabapentin 300 mg capsule 300 mg PO TID Patient Comments: TAKE 1 CAPSULE BY MOUTH THREE TIMES DAILY benzonatate 100 mg capsule 100 mg PO BID PRN (Reason: cough) Patient Comments: dose unknown omeprazole 40 mg capsule,delayed release(DR/EC) 40 mg PO DAILY Patient Comments: TAKE 1 CAPSULE BY MOUTH DAILY doxazosin 8 mg tablet 8 mg PO ONCE Patient Comments: TAKE 1 TABLET BY MOUTH EVERY DAY pitavastatin calcium 4 mg tablet 4 mg PO DAILY Patient Comments: TAKE 1 TABLET BY MOUTH EVERY DAY ergocalciferol (vitamin D2) [Vitamin D2] 1,250 mcg (50,000 unit) capsule 1,250 mcg PO Q7D Patient Comments: TAKE 1 CAPSULE BY MOUTH ONCE WEEKLY duloxetine 60 mg capsule,delayed release(DR/EC) 60 mg PO DAILY Patient Comments: TAKE 1 CAPSULE BY MOUTH EVERY DAY levothyroxine 25 mcg tablet 25 mcg PO DAILY Patient Comments: TAKE 1 TABLET BY MOUTH EVERY DAY Activity Restrictions: Activity as Tolerated Diet: Regular Health Concerns: You came into the hospital because you were feeling short of breath and had cough fever and fatigue. It turns out that you had a COVID infection. Since you have been here you have been able to wean off oxygen therapy and move about without needing any supplemental oxygen. When you get home to [place] you need a repeat chest x-ray. This is because your chest x-ray did show very small pulmonary nodules. These could very well be part of your COVID infection but we need to make sure that your chest x-ray appears normal when you are well. I am writing you a prescription for an inhaler, as well as antinausea medication. I want you to restart all of your normal home medications. Additionally I am writing you a prescription for Decadron. You can take this tomorrow morning and the next morning. Take this in the morning with food. You want to take it in the morning because it will cause you to stay awake at night if you take it later in the day. Get lots of rest and drink lots of fluids. You still have COVID and I would encourage you to wear a mask when you are around your family members who are not currently infected. It has been several days since your infection has started and so your viral loads are probably going down significantly, especially with the medication you have been given here in the hospital. Care Plan Goals: Return to independent living meeting your own needs Assessment: COVID infection which caused you to be acutely ill and need oxygen. You are improving. You are off of oxygen. Print Language: Sami Patient Instructions: Flu and Cold: Nutrition, Prevention and Treatment Tips"
[2024-11-14] MEDS ORDERED: ERGOCALCIFEROL 50,000 UNIT CAPSULE PO SCH (17:00)
== END 2024-11-14 15:15 | disposition home or self-care (01) | DRG 177 ==
LOC: ED 21:58 → MS3 11-13 02:33
PROVIDERS: ADMIT Internal Medicine; ATTEND Internal Medicine
DX: U07.1 COVID-19; D53.9 Nutritional anemia, unspecified; I50.9 Heart failure, unspecified; I10 Essential (primary) hypertension; E11.65 Type 2 diabetes mellitus with hyperglycemia; N17.9 Acute kidney failure, unspecified; E03.9 Hypothyroidism, unspecified; J96.01 Acute respiratory failure with hypoxia; R53.1 Weakness; Z98.1 Arthrodesis status; D69.6 Thrombocytopenia, unspecified; R91.8 Other nonspecific abnormal finding of lung field; R09.02 Hypoxemia; E83.42 Hypomagnesemia; G89.4 Chronic pain syndrome; G25.0 Essential tremor; J06.9 Acute upper respiratory infection, unspecified; K21.9 Gastro-esophageal reflux disease without esophagitis